=== PATIENT | female | born 1955 | race Caucasian/White ===

== ENCOUNTER → 2018-03-16 | Outpatient (CLI) | payer OTHER, BC ==
--- NOTE | 2018-03-17 08:40 | RADIOLOGY IMAGING REPORT ---
FACILITY: [facility] PATIENT NAME: DEMETRIS JASSO : [id number] MR: [id number] V: [id number] EXAM DATE: ORDERING PHYSICIAN: RUSS ALMODOVAR TECHNOLOGIST: Maria Luisa Franz PROCEDURE:BILATERAL DIGITAL SCREENING MAMMOGRAM WITH CAD ASSISTED INTERPRETATION & 3D TOMOSYNTHESIS COMPARISON:Prior mammograms 02/11/16, 04/23/14, 03/06/12. INDICATIONS:screening FINDINGS: Dense heterogeneous fibroglandular tissue is seen throughout the breasts. Most of the parenchymal pattern has remained stable allowing for difference in mammographic technique & patient positioning. In the lateral portion of the Right breast on the Right CC view there is a focal area of increased density for which Spot compression view is recommended. This is best appreciated on Tomographic image 29 on the Right CC view. DIAGNOSTIC CATEGORY 0--INCOMPLETE: NEED ADDITIONAL IMAGING EVALUATION. RECOMMENDATIONS: ADDITIONAL MAMMOGRAPHIC VIEWS REQUIRED: RIGHT BREAST. IMPRESSION: BIRADS 0: Incomplete. Additional view of the Right breast recommended. Dictated by: Kari Montgomery M.D. on 03/16/2018 at 15:52 Transcribed by: [email or web address] on 03/16/2018 at 16:08 Approved by: Kari Montgomery M.D. on 03/17/2018 at 8:38 [facility]
== END ==
LOC: MAMO 01:24
PROVIDERS: ATTEND Obstetrics & Gynecology
DX: Z12.31 Encounter for screening mammogram for malignant neoplasm of breast (principal); R92.8 Other abnormal and inconclusive findings on diagnostic imaging of breast
CPT/HCPCS: 77063; 77067

== ENCOUNTER → 2018-04-05 | Outpatient (CLI) | payer OTHER, BC ==
--- NOTE | 2018-04-05 15:25 | RADIOLOGY IMAGING REPORT ---
FACILITY: [facility] [place] PATIENT NAME: DEMETRIS JASSO : [id number] MR: [id number] V: [id number] EXAM DATE: [id number] ORDERING PHYSICIAN: RUSS ALMODOVAR TECHNOLOGIST: Maria Luisa Franz PROCEDURE:RIGHT DIGITAL DIAGNOSTIC MAMMOGRAM WITH CAD ASSISTED INTERPRETATION & 3D TOMOSYNTHESIS COMPARISON:Prior mammograms 03/16/2018. INDICATIONS:Focal asymmetry Right breast FINDINGS: Right breast medial lateral view, as well as Right breast CC, Spot compression view are obtained. The previously seen asymmetry does not persist on Today's imaging. DIAGNOSTIC CATEGORY 1--NEGATIVE. RECOMMENDATIONS: ROUTINE MAMMOGRAM AND CLINICAL EVALUATION. IMPRESSION: BIRADS 1: Negative. No mammographic evidence for malignancy. Dictated by: Cole Dahl M.D. on 04/05/2018 at 11:06 Transcribed by: [email or web address] on 04/05/2018 at 11:16 Approved by: Cole Dahl M.D. on 04/05/2018 at 15:22 [facility]
== END ==
LOC: MAMO 01:09
PROVIDERS: ATTEND Obstetrics & Gynecology
DX: R92.2 Inconclusive mammogram (principal)
CPT/HCPCS: 77061; 77065